=== PATIENT | female | born 1945 | race Caucasian/White ===

== ENCOUNTER 2024-08-24 06:00 | Day surgery (SDC) | payer MEDICARE ==
[2024-08-24] MEDS: Lactated Ringers 1,000 ML IV SCH (06:05)
[2024-08-24] MEDS ORDERED: ceFAZolin 2 GM Vial ONE (06:35)
[2024-08-24] MEDS ORDERED: Midazolam 1 MG/ML 2 ML SDV ONE (06:35)
[2024-08-24] MEDS ORDERED: propofoL 500 MG/50 ML 50 ML ONE (06:35)
[2024-08-24] MEDS ORDERED: Lidocaine 1% 5 ML VIAL ONE (07:17)
[2024-08-24] MEDS ORDERED: Rocuronium 50 MG/5 ML Vial ONE (07:20)
[2024-08-24] MEDS ORDERED: Ondansetron 4 MG/2 ML SDV ONE (07:20)
[2024-08-24] MEDS ORDERED: Dexamethasone 4 MG/ML 5 ML MDV ONE (07:20)
[2024-08-24] MEDS ORDERED: Sodium Chloride 0.9% 10 ML Syringe FLUSH PRN (07:28)
[2024-08-24] MEDS ORDERED: fentaNYL 100 MCG/2 ML SDV ONE (07:52)
[2024-08-24] MEDS ORDERED: Ketamine 200 MG/20 ML MDV ONE (07:53)
[2024-08-24] MEDS ORDERED: ePHEDrine 50 MG/ML SDV ONE (08:02)
[2024-08-24] MEDS ORDERED: Ondansetron 4 MG/2 ML SDV IVPUSH PRN (08:06)
[2024-08-24] MEDS ORDERED: fentaNYL 100 MCG/2 ML SDV IVPUSH PRN (08:06)
[2024-08-24] MEDS ORDERED: HYDROmorphone 0.5 MG/0.5 ML Syringe IVPUSH PRN (08:06)
[2024-08-24] MEDS ORDERED: Lactated Ringers 1,000 ML ONE (08:13)
[2024-08-24] MEDS: Morphine 8 MG, EPINEPHrine 0.3 MG, Cefuroxime 750 MG, Ketorolac 30 MG, Sodium Chloride ... PRN (08:14)
[2024-08-24] MEDS: Tranexamic Acid 1,000 MG/10 ML Vial ONE (08:14)
[2024-08-24] MEDS: VANCOmycin 1 GM SDV ONE (08:14)
[2024-08-24] MEDS ORDERED: Sodium Chloride 0.9% 10 ML Syringe FLUSH SCH (09:00)
[2024-08-24] MEDS: Acetaminophen/HYDROcodone 325-5 MG Tab PO ONE ×2 (09:27→10:30)
== END 2024-08-24 12:35 | disposition home or self-care (01) ==
LOC: JD.SDS 06:00
PROVIDERS: ATTEND Orthopaedic Surgery
DX: M16.12 Unilateral primary osteoarthritis, left hip (principal); F41.1 Generalized anxiety disorder; K21.9 Gastro-esophageal reflux disease without esophagitis; Z79.899 Other long term (current) drug therapy
CPT/HCPCS: 0055T; 27130; 73501; 97110; 97116; 97161; A9270; C1713; C1776; J0171; J0690; J0697; J1885; J2003; J2250; J2272; J2704; J3010; J7120; J1100; J2405; J3490